=== PATIENT | female | born 1935 | race Caucasian/White ===

== ENCOUNTER 2017-04-13 15:50 | Inpatient (IN) | payer MEDICARE, BC ==
[~2017-04-13] VITALS: Ht 177.8 cm; Wt 71.0 kg
[~2017-04-13 15:50] MED LIST: ADULT ASPIRIN E81 MG; AMIODARONE200 MG PO; AMLODIPINE PO; AMLODIPINE10 MG PO; BENICAR20 MG PO; DULCOLAX SS100 MG PO; LANOXIN0.25 MG PO; LIPITOR20 M1 PO; LISINOPRIL10 MG PO; LOPRESSOR25 MG PO; LOSARTAN POT50 MG PO; METAMUCIL MULT58.6 % OR; METOPROL TAR25 M1 PO; METOPROL TAR25 MG PO; MIRALAX3350 N1 PO; NO HOME MEDS; SYNTHROID50 MCG PO; WARFARIN2 MG PO; WARFARIN3 MG PO; ZOFRAN4 MG/TAB PO
[2017-04-13] MEDS ORDERED: WARFARIN1 MG PO ×2 (16:22→16:23)
[2017-04-13 16:39] LABS: HEMATOCRIT 37.4 % (37.0-47.0); HEMOGLOBIN 11.6 g/dl (12.0-16.0); IMMATURE GRANULOCYTES 0.3 % (0.0-1.0); MEAN CELL VOLUME 85.2 fL CALC (80.0-100.0); MEAN CORPUSCULAR HGB 26.4 pG CALC (26.0-32.0); NEUT# 8.83 thou/uL (2.00-7.15); RED BLOOD COUNT 4.39 mill/uL (4.20-5.60); RED CELL DISTRI WIDTH 16.4 % (11.5-15.5)
[2017-04-13 16:51] LABS: ALBUMIN 3.7 g/dL (3.2-5.0); BILIRUBIN, TOTAL 3.4 mg/dL (0.0-1.4); CALCIUM 10.1 mg/dL (8.4-10.2); CREATININE 1.5 mg/dL (0.5-1.0); POTASSIUM 4.8 mmol/l (3.5-5.1); TOTAL PROTEIN 6.4 g/dL (6.3-8.2)
[2017-04-13 16:53] LABS: INTERNATIONAL NORMALIZED RATIO 3.1 RATIO (0.7-1.3); PROTHROMBIN TIME 36.5 SECONDS (9.0-12.5)
[2017-04-13 20:05] VITALS: BP 171/84
[2017-04-14] VITALS (7 sets, daily range): BP systolic 133–170; BP diastolic 69–90
[2017-04-14 07:23] LABS: HEMATOCRIT 36.9 % (37.0-47.0); HEMOGLOBIN 11.5 g/dl (12.0-16.0); IMMATURE GRANULOCYTES 0.6 % (0.0-1.0); MEAN CELL VOLUME 85.8 fL CALC (80.0-100.0); MEAN CORPUSCULAR HGB 26.7 pG CALC (26.0-32.0); MEAN CORPUSCULAR HGB CONC 31.2 g/L CALC (32.0-36.0); NEUT# 8.19 thou/uL (2.00-7.15); RED BLOOD COUNT 4.3 mill/uL (4.20-5.60); RED CELL DISTRI WIDTH 16.6 % (11.5-15.5)
[2017-04-14 08:13] LABS: ALBUMIN 3.1 g/dL (3.2-5.0); CALCIUM 9.8 mg/dL (8.4-10.2); CREATININE 1.4 mg/dL (0.5-1.0); POTASSIUM 4.4 mmol/l (3.5-5.1); TOTAL PROTEIN 5.8 g/dL (6.3-8.2)
[2017-04-15 00:01] VITALS: BP 149/88
[2017-04-15 05:18] VITALS: BP 145/75
[2017-04-15 07:01] LABS: HEMATOCRIT 39.1 % (37.0-47.0); HEMOGLOBIN 12.2 g/dl (12.0-16.0); MEAN CELL VOLUME 86.1 fL CALC (80.0-100.0); MEAN CORPUSCULAR HGB 26.9 pG CALC (26.0-32.0); MEAN CORPUSCULAR HGB CONC 31.2 g/L CALC (32.0-36.0); RED BLOOD COUNT 4.54 mill/uL (4.20-5.60); RED CELL DISTRI WIDTH 16.6 % (11.5-15.5)
[2017-04-15 07:15] LABS: INTERNATIONAL NORMALIZED RATIO 2.1 RATIO (0.7-1.3)
[2017-04-15 07:35] LABS: ALBUMIN 2.7 g/dL (3.2-5.0); CALCIUM 9.3 mg/dL (8.4-10.2); CREATININE 1.1 mg/dL (0.5-1.0); POTASSIUM 4.2 mmol/l (3.5-5.1); TOTAL PROTEIN 5.2 g/dL (6.3-8.2)
[2017-04-15 07:38] LABS: ALBUMIN 2.8 g/dL (3.2-5.0); BILIRUBIN, TOTAL 1.9 mg/dL (0.0-1.4); TOTAL PROTEIN 5.3 g/dL (6.3-8.2)
[2017-04-15 08:02] VITALS: BP 128/80
[2017-04-15 11:34] VITALS: BP 124/78
[2017-04-15 16:04] VITALS: BP 97/63
[2017-04-16 00:41] VITALS: BP 126/77
[2017-04-16 04:32] VITALS: BP 133/72
[2017-04-16 06:21] LABS: HEMATOCRIT 38.2 % (37.0-47.0); HEMOGLOBIN 11.5 g/dl (12.0-16.0); IMMATURE GRANULOCYTES 0.3 % (0.0-1.0); MEAN CELL VOLUME 87.2 fL CALC (80.0-100.0); MEAN CORPUSCULAR HGB 26.3 pG CALC (26.0-32.0); MEAN CORPUSCULAR HGB CONC 30.1 g/L CALC (32.0-36.0); NEUT# 5.1 thou/uL (2.00-7.15); RED BLOOD COUNT 4.38 mill/uL (4.20-5.60); RED CELL DISTRI WIDTH 16.4 % (11.5-15.5)
[2017-04-16 06:45] LABS: PROTHROMBIN TIME 23.1 SECONDS (9.0-12.5)
[2017-04-16 06:49] LABS: CALCIUM 9.3 mg/dL (8.4-10.2); CREATININE 1.1 mg/dL (0.5-1.0); MAGNESIUM 1.7 mg/dL (1.6-2.3); POTASSIUM 3.9 mmol/l (3.5-5.1)
[2017-04-16 06:52] LABS: ALBUMIN 2.8 g/dL (3.2-5.0); BILIRUBIN, TOTAL 1.5 mg/dL (0.0-1.4); CALCIUM 9.3 mg/dL (8.4-10.2); CREATININE 1.1 mg/dL (0.5-1.0); POTASSIUM 3.9 mmol/l (3.5-5.1); TOTAL PROTEIN 5.3 g/dL (6.3-8.2)
[2017-04-16 09:04] VITALS: BP 133/63
[2017-04-16 11:08] VITALS: BP 122/53
[2017-04-16 15:26] VITALS: BP 103/61
[2017-04-16 19:35] VITALS: BP 92/57
[2017-04-16 22:38] LABS: URINE BILIRUBIN - DIPSTICK NEGATIVE (NEGATIVE); URINE BLOOD DIPSTICK SMALL (NEGATIVE); URINE CLARITY CLOUDY; URINE COLOR YELLOW; URINE GLUCOSE - DIPSTICK NEGATIVE (NEGATIVE); URINE KETONE NEGATIVE (NEGATIVE); URINE LEUK ESTERASE NEGATIVE (NEGATIVE); URINE PH 5.5 (4.5-8.0); URINE PROTEIN - DIPSTICK NEGATIVE (NEG-TRACE)
[2017-04-16 22:43] LABS: URINE NITRITE - DIPSTICK POSITIVE (Negative)
[2017-04-16 22:54] LABS: URINE BACTERIA MANY hpf; URINE RBC 0-2 RBC/hpf (0-5); URINE SQUAMOUS EPITHELIAL CELL FEW EPI/hpf (0-FEW)
[2017-04-17 00:12] VITALS: BP 119/74
[2017-04-17 04:45] VITALS: BP 129/79
[2017-04-17 06:05] LABS: HEMATOCRIT 36.1 % (37.0-47.0); HEMOGLOBIN 10.9 g/dl (12.0-16.0); IMMATURE GRANULOCYTES 0.3 % (0.0-1.0); MEAN CELL VOLUME 86.2 fL CALC (80.0-100.0); MEAN CORPUSCULAR HGB CONC 30.2 g/L CALC (32.0-36.0); NEUT# 5.09 thou/uL (2.00-7.15); RED BLOOD COUNT 4.19 mill/uL (4.20-5.60); RED CELL DISTRI WIDTH 16.6 % (11.5-15.5)
[2017-04-17 06:07] LABS: ANION GAP 10 (6-22 (CALC)); BUN 28 mg/dL (8-23); BUN/CREATININE RATIO 29 (12-20 (CALC)); CALCIUM 9.1 mg/dL (8.4-10.2); CARBON DIOXIDE 25 mmol/l (22-30); CHLORIDE 108 mmol/l (95-108); GFR 53 ML/MIN (>=60 (CALC)); GFR FOR AFR.AMER. > 60 ML/MIN (>=60 (CALC)); GLUCOSE 83 mg/dL (82-115); SODIUM 140 mmol/l (137-146)
[2017-04-17 06:16] LABS: INTERNATIONAL NORMALIZED RATIO 1.5 RATIO (0.7-1.3)
[2017-04-17 08:01] VITALS: BP 122/78
[2017-04-17 11:38] LABS: ALBUMIN 2.6 g/dL (3.2-5.0); BILIRUBIN, TOTAL 1.3 mg/dL (0.0-1.4); TOTAL PROTEIN 5.1 g/dL (6.3-8.2)
[2017-04-17 12:06] VITALS: BP 120/72
== END 2017-04-17 15:32 | DRG 683 ==
LOC: ED 15:50 → ED-I 17:27 → ED 17:51 → MS2 17:52
PROVIDERS: Emergency Medicine; Internal Medicine; Nurse Practitioner Family; ADMIT Internal Medicine; ATTEND Internal Medicine
DX: N17.9 Acute kidney failure, unspecified (principal); I69.354 Hemiplegia and hemiparesis following cerebral infarction affecting left non-dominant side; I48.0 Paroxysmal atrial fibrillation; F03.90 Unspecified dementia, unspecified severity, without behavioral disturbance, psychotic disturbance, mood disturbance, and anxiety; E86.0 Dehydration; I48.91 Unspecified atrial fibrillation; I12.9 Hypertensive chronic kidney disease with stage 1 through stage 4 chronic kidney disease, or unspecified chronic kidney disease; R62.7 Adult failure to thrive; F32.9 Major depressive disorder, single episode, unspecified; N18.3 Chronic kidney disease, stage 3 (moderate); E78.5 Hyperlipidemia, unspecified; R79.1 Abnormal coagulation profile; T45.515A Adverse effect of anticoagulants, initial encounter; R74.8 Abnormal levels of other serum enzymes; I25.2 Old myocardial infarction; M62.569 Muscle wasting and atrophy, not elsewhere classified, unspecified lower leg; Z95.1 Presence of aortocoronary bypass graft; Z95.0 Presence of cardiac pacemaker; Z86.718 Personal history of other venous thrombosis and embolism
CPT/HCPCS: G0378

== ENCOUNTER 2017-04-23 11:35 | Emergency (ER) | payer MEDICARE, BC ==
[~2017-04-23] VITALS: Ht 177.8 cm; Wt 70.0 kg
[~2017-04-23 11:35] MED LIST changes: +WARFARIN1 MG PO
[2017-04-23 12:13] LABS: HEMATOCRIT 41.2 % (37.0-47.0); HEMOGLOBIN 12.4 g/dl (12.0-16.0); IMMATURE GRANULOCYTES 0.5 % (0.0-1.0); MEAN CELL VOLUME 85.8 fL CALC (80.0-100.0); MEAN CORPUSCULAR HGB 25.8 pG CALC (26.0-32.0); MEAN CORPUSCULAR HGB CONC 30.1 g/L CALC (32.0-36.0); NEUT# 5.49 thou/uL (2.00-7.15); RED BLOOD COUNT 4.8 mill/uL (4.20-5.60); RED CELL DISTRI WIDTH 16.5 % (11.5-15.5)
[2017-04-23 12:34] LABS: ALBUMIN 3.3 g/dL (3.2-5.0); ALKALINE PHOSPHATASE 75 u/l (38-126); ANION GAP 15 (6-22 (CALC)); BUN 15 mg/dL (8-23); BUN/CREATININE RATIO 17 (12-20 (CALC)); CALCIUM 9.5 mg/dL (8.4-10.2); CARBON DIOXIDE 25 mmol/l (22-30); CHLORIDE 103 mmol/l (95-108); CREATININE 0.9 mg/dL (0.5-1.0); GFR 60 ML/MIN (>=60 (CALC)); GFR FOR AFR.AMER. > 60 ML/MIN (>=60 (CALC)); GLUCOSE 102 mg/dL (82-115); POTASSIUM 4.1 mmol/l (3.5-5.1); SGOT/AST 23 u/l (9-36); SGPT/ALT 53 u/l (11-66); SODIUM 139 mmol/l (137-146); TOTAL PROTEIN 6.2 g/dL (6.3-8.2)
[2017-04-23 12:46] LABS: MYOGLOBIN 56 ng/mL (0 - 62)
[2017-04-23] MEDS ORDERED: TYLENOL325 MG PO (13:47)
[2017-04-23] MEDS ORDERED: LASIX 20 MG20 MG/TAB PO (13:48)
[2017-04-23] MEDS ORDERED: MILK OF MAG30 ML/UDC PO (13:52)
[2017-04-23 14:11] LABS: PROTHROMBIN TIME 10.8 SECONDS (9.0-12.5)
[2017-04-23 15:20] VITALS: BP 143/67
== END 2017-04-23 15:23 | disposition short-term general hospital (02) ==
LOC: ED 11:35
PROVIDERS: Emergency Medicine
DX: R56.9 Unspecified convulsions (principal); I69.954 Hemiplegia and hemiparesis following unspecified cerebrovascular disease affecting left non-dominant side; I10 Essential (primary) hypertension; I25.2 Old myocardial infarction; E78.5 Hyperlipidemia, unspecified; Z95.0 Presence of cardiac pacemaker
CPT/HCPCS: J2060

== ENCOUNTER 2017-05-12 08:07 | Inpatient (IN) | payer MEDICARE, BC ==
[~2017-05-12] VITALS: Ht 177.8 cm; Wt 62.2 kg
[~2017-05-12 08:07] MED LIST changes: +LASIX 20 MG20 MG/TAB PO; +MILK OF MAG30 ML/UDC PO; +TYLENOL325 MG PO
--- NOTE | 2017-05-12 08:19 | NUR ---
PATIENT TO ROOM VIA EMS AND PHYSICIAN AT BEDSIDE FOR EVALUATION
[2017-05-12 08:30] LABS: HEMATOCRIT 38.7 % (37.0-47.0); HEMOGLOBIN 11.7 g/dl (12.0-16.0); IMMATURE GRANULOCYTES 1.7 % (0.0-1.0); MEAN CELL VOLUME 85.2 fL CALC (80.0-100.0); MEAN CORPUSCULAR HGB 25.8 pG CALC (26.0-32.0); MEAN CORPUSCULAR HGB CONC 30.2 g/L CALC (32.0-36.0); PLATELET COUNT 286 thou/uL (130-400); RED BLOOD COUNT 4.54 mill/uL (4.20-5.60); RED CELL DISTRI WIDTH 18.6 % (11.5-15.5)
[2017-05-12] MEDS ORDERED: ALDACTONE25 MG PO (08:30)
[2017-05-12] MEDS ORDERED: AMIODARONE200 MG PO (08:30)
[2017-05-12] MEDS ORDERED: ATORVASTATIN CA20 MG PO (08:31)
[2017-05-12] MEDS ORDERED: BUMETANIDE1 MG PO (08:32)
[2017-05-12] MEDS ORDERED: DIGOXIN0.125 MG PO (08:33)
[2017-05-12] MEDS ORDERED: COLACE100 MG PO (08:34)
[2017-05-12] MEDS ORDERED: FAMOTIDINE20 M1 PO (08:35)
[2017-05-12] MEDS ORDERED: DIOVAN80 MG PO (08:37)
[2017-05-12] MEDS ORDERED: COREG6.25 MG PO (08:38)
[2017-05-12] MEDS ORDERED: ELIQUIS5 MG PO (08:40)
[2017-05-12] MEDS ORDERED: KEPPRA100 MG/ML PO (08:41)
[2017-05-12 08:46] LABS: MANUAL DIFFERENTIAL YES
--- NOTE | 2017-05-12 09:13 | NUR ---
AWAITING LAB RESULTS FOR CT. COMFORT MEASURES PROVIDED.
[2017-05-12 09:20] LABS: URINE BILIRUBIN - DIPSTICK NEGATIVE (NEGATIVE); URINE BLOOD DIPSTICK LARGE (NEGATIVE); URINE COLOR YELLOW; URINE GLUCOSE - DIPSTICK NEGATIVE (NEGATIVE); URINE KETONE NEGATIVE (NEGATIVE); URINE PROTEIN - DIPSTICK 30 mg/dL (NEG-TRACE)
[2017-05-12 09:23] LABS: URINE CLARITY CLOUDY; URINE LEUK ESTERASE LARGE (NEGATIVE); URINE NITRITE - DIPSTICK POSITIVE (Negative)
[2017-05-12 09:24] LABS: URINE BACTERIA MANY hpf; URINE EPITHELIAL CELLS MANY EPI/hpf (0-FEW); URINE RBC 25-50 RBC/hpf (0-5); URINE WBC TNTC WBC/hpf (0-5)
[2017-05-12 09:32] LABS: INTERNATIONAL NORMALIZED RATIO 1.2 RATIO (0.7-1.3); PROTHROMBIN TIME 13.7 SECONDS (9.0-12.5)
[2017-05-12 09:35] LABS: ALBUMIN 3.5 g/dL (3.2-5.0); BILIRUBIN, TOTAL 1.7 mg/dL (0.0-1.4); CALCIUM 10.4 mg/dL (8.4-10.2); CREATININE 1.5 mg/dL (0.5-1.0); TOTAL PROTEIN 7.4 g/dL (6.3-8.2)
--- NOTE | 2017-05-12 09:40 | NUR ---
SPOKE WITH SPOUSE OF PT, MONICA MONTALVO, FOR CONSENT TO PERFORM CT W/IV CONTRAST PT IS UNABLE TO INDICATE CONSENT DUE TO RECENT CVA. CONSENT RECEIVED VIA PHONE WITNESSED BY THIS NURSE AND TIFFANIE GALLOWAY
--- NOTE | 2017-05-12 10:24 | NUR ---
PT RESTING ON STRETCHER. NO S/S OF PAIN. PAIN MEDS EFFECTIVE. AWATING TEST RESULTS. IV SITE HEALTHY. SYLVIA COMPLETED.
--- NOTE | 2017-05-12 11:20 | NUR ---
PRINTED SBAR TO FLOOR
--- NOTE | 2017-05-12 11:45 | NUR ---
REPORT CALLED TO [facility] AND PATIENT TRANSPORTED
[2017-05-12 12:06] VITALS: BP 151/55
--- NOTE | 2017-05-12 14:15 | NUR ---
Drug Selected: Vancomycin Age: 82 years Weight: 61.1 kg Height: 70 in Gender: Female SCR: 1.5 mg/dl Dosing weight: 61.1 kg IBW: 68.50 kg CRCL (ml/min): 27.4 Vickey (hr-1): 0.027 Half-life (hrs): 25.67 Give Vancomycin 500 mg q24 hrs to produce a a predicted trough of 12.31 mcg/ml based on (Population-based pharmacokinetic analysis). Vancomycin trough to be drawn on 05/15/17 @ 1430, 30 minutes prior to 1500 dose. Goal trough 10-15.
[2017-05-12 15:59] VITALS: BP 129/69
--- NOTE | 2017-05-12 17:58 | NUR ---
PLACED A CALL TO R RE: MEDICATION (KEPPRA LIQUID) WILL BE SENT OVER FROM THEM AND WILL BE SHOWN TO PHARMACY IN THE AM.
--- NOTE | 2017-05-12 18:15 | NUR ---
SPOKE SARAH GAN RE: MEDICATIONS IT IS ON HOLD UNTIL AM.
--- NOTE | 2017-05-12 18:48 | NUR ---
PT'S ARM IS VERY POSITIONAL. REINFORCED WITH COBAN TO KEEP IN PLACE.
[2017-05-12 19:05] VITALS: BP 140/69; BP 158/52
--- NOTE | 2017-05-12 20:00 | NUR ---
PATIENT RESTING IN BED AT THIS TIME-RESTLESS AND CONFUSED. TALKING IN GARBLED SPEECH BUT DOES KNOW HER BIRTHDATE. PATIENT WITH LARGE SWOLLEN AREA TO THE RIGHT SIDE OF HER FACE AND NECK-HARD AND WARM TO TOUCH. APPEARS PAINFUL TO TOUCH. MEDICATED WITH MORPHINE 2MG IVP ORDERED FOR PAIN. NEW IV SITE STARTED TO LEFT FOREARM-#22 GAUGE WITH GOOD BLOOD RETURN. IVF NS PATENT AND INFUSING AT 80CC/HR. SIDERAILS PADDED FOR SEIZURE PRECAUTIONS. BED ALARM IN PLACE FOR PATIENT SAFETY, WILL CONT TO MONITOR.
--- NOTE | 2017-05-12 20:00 | NUR ---
PATIENT RESTLESS IN BED AND TALKING IN GARBLED SPEECH. CONFUSED . PATIENT WITH LARGE SWOLLEN AREA TO THE RIGHT SIDE OF THE FACE AND NECK. PATIENT MEDICATED WITH MORPHINE 2MG IVP ORDERED FOR PAIN. NEW IV SITE STARTED TO THE LEFT FOREARM-#22 GAUGE WITH GOOD BLOOD RETURN. IVF PATENT AND INFUSING AT 80CC/HR SIDERAILS PADDED FOR SEIZURE PRECAUTIONS. BED ALARM IN PLACE. WILL CONT TO MONITOR.
--- NOTE | 2017-05-13 | NUR ---
PATIENT CONT TO BE SOMEWHAT RESTLESS-SIDERAILS REMAIN PADDED FOR SEIZURE PRECAUTIONS. WARM COMPRESS TO RIGHT SIDE OF PATIENT FACE. BED ALARM IN PLACE FOR PATIENT SAFETY. WILL CONT TO MONITOR.
--- NOTE | 2017-05-13 01:38 | NUR ---
PATIENT RESTLESS IN BED AND MOANING-RIGHT SIDE OF FACE REMAOINS SWOLLEN AND TENDER TO TOUCH. PATIENT MEDICATED WITH MORPHINE 2MG IVP FOR PAIN. PATIENT POSITIONED ON HER SIDE. SIDERAILS PADDED FOR SEIZURE PRECAUTIONS. CALL LIGHT IN REACH. BED ALARM FOR PATIENT SAFETY. WILL CONT TO MONITOR.
[2017-05-13 04:24] VITALS: BP 120/60
--- NOTE | 2017-05-13 04:30 | NUR ---
APPEARS SLEEPING AT THIS TIME WITH EYES CLOSED AND POSITIONED ON RIGHT SIDE. BED ALARM IN PLACE. CALL LIGHT IN REACH. WILL CONT TO MONITOR.
[2017-05-13 06:28] LABS: HEMATOCRIT 39.3 % (37.0-47.0); HEMOGLOBIN 11.7 g/dl (12.0-16.0); IMMATURE GRANULOCYTES 1.6 % (0.0-1.0); MEAN CELL VOLUME 85.6 fL CALC (80.0-100.0); MEAN CORPUSCULAR HGB 25.5 pG CALC (26.0-32.0); MEAN CORPUSCULAR HGB CONC 29.8 g/L CALC (32.0-36.0); PLATELET COUNT 269 thou/uL (130-400); RED BLOOD COUNT 4.59 mill/uL (4.20-5.60)
--- NOTE | 2017-05-13 06:40 | NUR ---
PATIENT IS MOANING OUT-PATIENT GIVEN ORAL HYGEINE. PATIENT MEDICATED FOR PAIN TO RIGHT SIDE OF THE FACE AND NECK WITH MORPHINE ORDERED. SIDE RAILS PADDED FOR SEIZURE PRECAUTIONS. BED ALARM IN PLACE FOR PATIENT SAFETY. WILL DR. SHARP CALLED WITH CRITICAL WBC-41.5-LEFT MESSAGE ON ANSWERING MACHINE. WILL CONT TO MONITOR.
[2017-05-13 06:49] LABS: CALCIUM 9.7 mg/dL (8.4-10.2); CREATININE 1.4 mg/dL (0.5-1.0); POTASSIUM 3.9 mmol/l (3.5-5.1)
[2017-05-13 07:04] LABS: MANUAL DIFFERENTIAL YES
--- NOTE | 2017-05-13 09:00 | NUR ---
PT SEEN AT REST IN THE STRETCHER, CONFUSED. SHE TALKS OUT LOUD TO HERSELF AND IS DIFFICULT TO ASSESS OTHERWISE. MONICA HAS CALLED FOR AN UPDATE.
--- NOTE | 2017-05-13 11:55 | NUR ---
CONSENT RECEIVED FROM MONICA FOR CONSENT FOR CT SCAN PT UNABLE TO CONSENT FOR HERSELF.
--- NOTE | 2017-05-13 13:00 | NUR ---
PT HAS BEEN TO CT AND BACK. AT BEDSIDE AT THIS TIME. PT CONTINUES BEFORE, NO ACUTE DISTRESS.
--- NOTE | 2017-05-13 15:19 | NUR ---
AND FAMILY FRIEND REMAIN AT BEDSIDE. FAMILY UPDATED ON CT c CONTRAST RESULT. PT DOES INTERACT WITH FAMILY, ALTHOUGH REPETITIVE.
[2017-05-13 15:55] VITALS: BP 110/70
--- NOTE | 2017-05-13 17:08 | NUR ---
PT PROVIDED MORPHINE FOR RESTLESSNESS PER FAMILY REQUEST. FAMILY HAS DEPARTED.
--- NOTE | 2017-05-13 19:00 | NUR ---
RECEIVED CHANGE OF SHIFT REPORT FROM TIFFANIE TYLER. PATIENT RESTING IN BED AND APPEARS NOT TO BE IN ANY APPARENT ACUTE DISTRESS. WILL CONTINUE TO MONITOR.
[2017-05-13 19:40] VITALS: BP 148/76
--- NOTE | 2017-05-14 | NUR ---
PATIENT RESTING QUIETLY. NO APPARENT ACUTE CHANGES NOTED IN PATIENT'S CONDITION.
[2017-05-14 03:58] VITALS: BP 138/76
--- NOTE | 2017-05-14 04:00 | NUR ---
PATIENT RESTING WITH EYES CLOSED AND APPEARS TO BE ASLEEP. RESOIRATION EVEN AND UNLABORED. NO APPARENT ACUTE CHANGES NOTED IN PATIENT'S CONDITION.
[2017-05-14 05:32] LABS: HEMATOCRIT 34.6 % (37.0-47.0); HEMOGLOBIN 10.2 g/dl (12.0-16.0); IMMATURE GRANULOCYTES 0.9 % (0.0-1.0); MEAN CELL VOLUME 87.8 fL CALC (80.0-100.0); MEAN CORPUSCULAR HGB 25.9 pG CALC (26.0-32.0); MEAN CORPUSCULAR HGB CONC 29.5 g/L CALC (32.0-36.0); NEUT# 23.38 thou/uL (2.00-7.15); RED BLOOD COUNT 3.94 mill/uL (4.20-5.60); RED CELL DISTRI WIDTH 18.8 % (11.5-15.5)
[2017-05-14 05:50] LABS: ALBUMIN 2.4 g/dL (3.2-5.0); CALCIUM 9.4 mg/dL (8.4-10.2); CREATININE 1.2 mg/dL (0.5-1.0); POTASSIUM 3.7 mmol/l (3.5-5.1)
[2017-05-14 05:55] LABS: CALCIUM 9.3 mg/dL (8.4-10.2); CREATININE 1.2 mg/dL (0.5-1.0); MAGNESIUM 2.1 mg/dL (1.6-2.3); POTASSIUM 3.6 mmol/l (3.5-5.1)
[2017-05-14 07:19] VITALS: BP 131/54
--- NOTE | 2017-05-14 07:23 | NUR ---
PT IN BED ALERT TO SELF ONLY, RESPIRATIONS EVEN AND UNLABORED ON O2 @2L VIA NC, O2 SAT 100%, STATING "I CANT BREATH", ENCOURAGED TO TAKE DEEP BREATH AND FOLLOWS DIRECTIONS, IN NO APPARENT DISTRESS. RIGHT SIDE OF NECK IS SLIGHTLY EDEMATOUS AND PINK IN COLOR, DENIES PAIN, IN NPO. D5 INFUSING TO LFA AT 125CC/HR. REPOSITIONED TO LEFT SIDE. WILL CONTINUE TO MONITOR.
--- NOTE | 2017-05-14 10:20 | NUR ---
REPOSITIONED TO RIGHT SIDE BY CYNDY ROBERTS. O2 @2L VIA NC IN PLACE.
--- NOTE | 2017-05-14 13:47 | NUR ---
DOWN TO RADIOLOGY FOR CT SCAN VIA W/C ACOMPANIED BY VOLUNTEER.
[2017-05-14 15:12] VITALS: BP 152/56
[2017-05-14 18:27] VITALS: BP 105/68
--- NOTE | 2017-05-14 20:00 | NUR ---
I RECEIVED PATIENT IN BED A+O*2, LUNGS CLEAR ROOM AIR, NO PRESENT CHEST PAIN AT THE MOMENT, NO ABD PAIN AND NO BS PRESENT, NO PRESENT EDEMA IN THIS MOMENT, THE IV SIDE LFA #22 WITH D5W TO RUN 100ML/HR AND NO PRESENT EDEMA AND FREE REDNESS AREA.
--- NOTE | 2017-05-15 | NUR ---
PATIENT CONTINUE IN BED, NO PRESENT CHEST PAIN AND CONTINUE WITH THE IV FLUID AND IN OBSERVATION.
--- NOTE | 2017-05-15 04:00 | NUR ---
PATIENT SLEEPING AND NO PRESENT CHEST PAIN AT THE MOMENT AND NO ABD PAIN, I GIVE MEDICATION 05/15/17 OOOOAM AND THE NEXT DOSE IS 0600AM ZOSYN AND CONTINUE IN OBSERVATION.
[2017-05-15 04:15] VITALS: BP 146/72
--- NOTE | 2017-05-15 05:06 | NUR ---
I RECEIVED PATIENT IN BED A+O*2, LUNGS CLEAR ROOM AIR, NO PRESENT CHEST PAIN, NO ABD PAIN AND NO PRESENT BS. SHE NO PRESENT EDEMA IN THE ARM AND LEG, THE IV SIDE LFA #22 WITH D5W TO RUN 100ML/HR AND NO PRESENT EDEMA AND FREE REDNESS AREA.
[2017-05-15 06:28] LABS: HEMATOCRIT 32.7 % (37.0-47.0); HEMOGLOBIN 9.8 g/dl (12.0-16.0); IMMATURE GRANULOCYTES 0.9 % (0.0-1.0); MEAN CELL VOLUME 86.1 fL CALC (80.0-100.0); MEAN CORPUSCULAR HGB 25.8 pG CALC (26.0-32.0); NEUT# 13.14 thou/uL (2.00-7.15); RED BLOOD COUNT 3.8 mill/uL (4.20-5.60); RED CELL DISTRI WIDTH 18.6 % (11.5-15.5)
[2017-05-15 06:47] LABS: ALBUMIN 2.2 g/dL (3.2-5.0); CREATININE 1.1 mg/dL (0.5-1.0); POTASSIUM 3.8 mmol/l (3.5-5.1)
[2017-05-15 08:10] VITALS: BP 128/52
--- NOTE | 2017-05-15 08:10 | NUR ---
ASSESSMENT IS COMPLETED: IV SITE IS FREE FROM REDNESS OR EDEMA. PT IS MORE TALKATIVE TODAY, ASKING QUESTIONS. ABOUT WHAT HAPPENED TO HER . FACIAL EDEMA IS MUCH BETTER TODAY.
--- NOTE | 2017-05-15 12:45 | NUR ---
PT IS RELAXING IN BED WITH NO DISTRESS NOTED. IV SITE IS FREE FROM REDNESS OR EDEMA. FAMILY CAME TO VISIT WITH PT. CONTINUE TO OSBERVE AND MONITOR.
[2017-05-15 15:00] VITALS: BP 121/61
--- NOTE | 2017-05-15 15:22 | NUR ---
Vancomycin consult Weight: 61 Kilograms Vancomycin single level analysis: Current dose being given: 500 mg Current dosing interval: 24 hrs Current infusion time (hrs): 2 Single level Trough Data: Trough level obtained: 11 mcg/ml Timing of trough - Number of hours before next dose: 0.5 Hrs New rate constant (mandy): 0.031 hr-1 New half-life: 22.36 Hours New Vd from levels: 42.70 Liters (0.7 L/kg) Vancomycin 750 mg q 24 hrs. Infuse over 2 hrs Expected Cpeak: 32 mcg/ml Expected Ctrough: 16 mcg/ml
[2017-05-15 19:15] VITALS: BP 140/67
--- NOTE | 2017-05-15 20:14 | NUR ---
PT RESTING IN SEMIFOWLERS AND REPOSITIONED TO LEFT SIDE, RESPIRATIONS EVEN AND UNLABORED, NO EDEMA NOTICED TO FACE OR NECK, SLIGHT PINK COLORED NOTICED TO RIGHT SIDE OF NECK, DENIES PAIN. ALERT TO SELF ONLY. NS INFUSING TO LFA AT 75CC/HR. WILL CONTINUE TO MONITOR.
--- NOTE | 2017-05-16 00:11 | NUR ---
POSITIONED TO LEFT SIDE, RESPIRATIONS EVEN AND UNLABORED. OFFERED A DRINK OF WATER AND PT REFUSES.
[2017-05-16 03:30] VITALS: BP 130/67
--- NOTE | 2017-05-16 03:30 | NUR ---
BED BATH AND CLEAN LINENS PROVIDED BY YOAV ROBERTS, AND POSITIONED TO RIGHT SIDE.
[2017-05-16 07:03] LABS: ALBUMIN 2.4 g/dL (3.2-5.0); BUN 28 mg/dL (8-23); CARBON DIOXIDE 25 mmol/l (22-30); CHLORIDE 106 mmol/l (95-108); CREATININE 0.9 mg/dL (0.5-1.0); GFR 60 ML/MIN (>=60 (CALC)); GFR FOR AFR.AMER. > 60 ML/MIN (>=60 (CALC)); GLUCOSE 61 mg/dL (82-115); POTASSIUM 3.8 mmol/l (3.5-5.1); SODIUM 140 mmol/l (137-146)
[2017-05-16 08:10] VITALS: BP 170/61
--- NOTE | 2017-05-16 08:10 | NUR ---
ASSESSMENT IS COMPLETED:l IV SITE IS FREE FROM REDNESS OR EDEMA. NO DISTRESS NOTED. FACE IS MUCH BETTER. CONTINUE TO OSBERVE AND MONITOR.
[2017-05-16] MEDS ORDERED: ROCEPHIN 2 GM2 GM IJ (12:26)
--- NOTE | 2017-05-16 14:42 | NUR ---
CALLED AND INFORMED OF PT BEING TRANSFERRED BACK TO REHAB., IV SITE INTACT AND COVERED WITH CRYSTAL WRAP. ALL PAPERS AND BELONGINGS GIVEN TO PT. AND STAFF FROM R
--- NOTE | 2017-05-16 14:45 | NUR ---
Discharge instructions given. Patient verbalizes understanding of same. Discharged in stable condition via Wheelchair to [facility] with *Other. All belongings sent with pt.
== END 2017-05-16 14:45 | DRG 871 ==
LOC: ED 08:07 → ED-I 11:09 → ED 11:23 → MS2 11:24
PROVIDERS: Emergency Medicine; Internal Medicine Nephrology; Nurse Practitioner Family; ADMIT Internal Medicine; ATTEND Internal Medicine
DX: A40.1 Sepsis due to streptococcus, group B (principal); G93.41 Metabolic encephalopathy; N17.9 Acute kidney failure, unspecified; E87.3 Alkalosis; R65.20 Severe sepsis without septic shock; E87.0 Hyperosmolality and hypernatremia; I48.2 Chronic atrial fibrillation; E86.0 Dehydration; F03.90 Unspecified dementia, unspecified severity, without behavioral disturbance, psychotic disturbance, mood disturbance, and anxiety; R13.10 Dysphagia, unspecified; I12.9 Hypertensive chronic kidney disease with stage 1 through stage 4 chronic kidney disease, or unspecified chronic kidney disease; N39.0 Urinary tract infection, site not specified; I69.954 Hemiplegia and hemiparesis following unspecified cerebrovascular disease affecting left non-dominant side; N18.3 Chronic kidney disease, stage 3 (moderate); I25.10 Atherosclerotic heart disease of native coronary artery without angina pectoris; E78.5 Hyperlipidemia, unspecified; K11.20 Sialoadenitis, unspecified; I69.922 Dysarthria following unspecified cerebrovascular disease; I69.991 Dysphagia following unspecified cerebrovascular disease; B96.20 Unspecified Escherichia coli [E. coli] as the cause of diseases classified elsewhere; I25.2 Old myocardial infarction; Z66 Do not resuscitate; Z95.5 Presence of coronary angioplasty implant and graft; Z95.1 Presence of aortocoronary bypass graft; Z95.0 Presence of cardiac pacemaker; Z79.01 Long term (current) use of anticoagulants
CPT/HCPCS: J3370; Q9967; S0164